=== PATIENT | male | born 1995 ===

== ENCOUNTER 2017-03-31 13:16 | Emergency (ER) | payer SELFPAY ==
[2017-03-31 13:28] VITALS: BP 101/67
--- NOTE | 2017-03-31 13:43 | C.PDOC ---
History Of Present Illness 21 year old male presents to the ED with complaints of fever and sore throat for 2 days. Denies taking any medication and no cough, ear pain, headache. Time Seen by Provider: 03/31/17 13:30 Chief Complaint (Nursing): ENT Problem History Per: Patient History/Exam Limitations: no limitations Onset/Duration Of Symptoms: Days (2 days ) Current Symptoms Are (Timing): Still Present Location Of Pain: Throat Sick Contacts (Context): None Associated Symptoms: Fever, Sore Throat. denies: Chills, Cough, Sputum, Nausea , Vomiting, Diarrhea Recent travel outside of the [place]: No Past Medical History Reviewed: Historical Data, Nursing Documentation, Vital Signs Vital Signs: Last Vital Signs Temp 98.9 F 03/31/17 14:09 Pulse 95 H 03/31/17 14:09 Resp 18 03/31/17 14:09 BP 101/67 03/31/17 13:25 Pulse Ox 100 03/31/17 14:09 - Medical History PMH: No Chronic Diseases Surgical History: No Surg Hx Family History: States: Unknown Family Hx - Social History Hx Alcohol Use: Yes Hx Substance Use: No - Immunization History Hx Influenza Vaccination: Yes Review Of Systems Constitutional: Positive for: Fever. Negative for: Chills ENT: Positive for: Other (sore throat ). Negative for: Ear Pain, Nose Discharge Cardiovascular: Negative for: Chest Pain Respiratory: Negative for: Cough, Shortness of Breath Gastrointestinal: Negative for: Nausea, Vomiting, Abdominal Pain Physical Exam - Physical Exam Appears: Non-toxic, No Acute Distress Skin: Warm, Dry Head: Atraumatic, Normacephalic Eye(s): bilateral: Normal Inspection, PERRL, EOMI Ear(s): Bilateral: Normal Nose: Normal, No Discharge Oral Mucosa: Moist Tongue: Normal Appearing Lips: Normal Appearing Teeth: Normal Dentition Throat: Erythema (bright pharyngeal erythema and mild tonsillar swelling), No Exudate, No Drooling, No Mass Neck: Supple Chest: Symmetrical, No Deformity Cardiovascular: Rhythm Regular, Other (Patient is tachycardic ) Respiratory: Normal Breath Sounds, No Decreased Breath Sounds, No Accessory Muscle Use, No Wheezing Gastrointestinal/Abdominal: Soft, No Tenderness, No Distention, No Guarding, No Rebound Extremity: Bilateral: Atraumatic, Normal Color And Temperature, Normal ROM Neurological/Psych: Oriented x3, Normal Speech Gait: Steady ED Course And Treatment O2 Sat by Pulse Oximetry: 97 (room air ) Pulse Ox Interpretation: Normal Progress Note: Patient was given Penicillin VK and Motrin. Medical Decision Making Medical Decision Makin21 year old male with fever and sore throat for 2 days. On evaluation patient is febrile and tachycardic. Throat shows bright pharyngeal erythema and mild tonsillar swelling, no exudates. Will treat for pharyngitis with Penicillin and Motrin for fever. Patient advised to drink fluids and continue antipyretics and antibiotic. Disposition Counseled Patient/Family Regarding: Diagnosis, Need For Followup, Rx Given - Disposition Referrals: [facility] [Outside] [facility] [Outside] Disposition: HOME/ ROUTINE Disposition Time: 14:00 Condition: STABLE Additional Instructions: Take Tylenol or Motrin alternating every 4-6 hours for Fever 100.4F or higher. Rest and drink plenty of fluids to prevent dehydration. Try vanilla ice cream to improve eating/drinking, this is cold soothing and tastes good. May also try lozenges or cepacol spary over the counter. Prescriptions: Penicillin VK [Pen-Vee K] 1 tab PO BID #20 tab Instructions: Pharyngitis (ED) Forms: [employer] (Sammarinese) Print Language: LAO - POA Present On Arrival: None - Clinical Impression Clinical Impression: Pharyngitis - PA / INTELLIGENCE OFFICER / Resident Statement MD/DO has reviewed & agrees with the documentation as recorded. - Scribe Statement The provider has reviewed the documentation as recorded by the Scribe Anna Pedersen All medical record entries made by the Ramakrishnaibalexa were at my direction and personally dictated by me. I have reviewed the chart and agree that the record accurately reflects my personal performance of the history, physical exam, medical decision making, and the department course for this patient. I have also personally directed, reviewed, and agree with the discharge instructions and disposition.
[2017-03-31 14:10] VITALS: PULSE 95; RESP 18; TEMP 98.9
[2017-03-31 14:22] VITALS: O2SAT 97
== END 2017-03-31 14:10 | disposition home or self-care (01) ==
LOC: C.ER 13:16
DX: J02.9 Acute pharyngitis, unspecified (principal)